=== PATIENT | male | born 1970 | race Caucasian/White ===

== ENCOUNTER 2018-08-25 19:46 | Emergency (ER) | payer SELFPAY ==
[~2018-08-25] VITALS: Ht 162.6 cm; Wt 73.0 kg
[2018-08-25 23:15] VITALS: BP 125/85
== END 2018-08-25 23:32 | disposition home or self-care (01) ==
LOC: ER 19:46
DX: F10.129 Alcohol abuse with intoxication, unspecified (principal); R11.2 Nausea with vomiting, unspecified; E11.9 Type 2 diabetes mellitus without complications; Y90.9 Presence of alcohol in blood, level not specified
CPT/HCPCS: 82962; 99283; Z7610